=== PATIENT | female | born 2005 | race Caucasian/White ===

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

== ENCOUNTER 2025-02-07 09:18 | Outpatient (CLI) | payer BC, SELFPAY | END 2025-02-07 09:19 | disposition home or self-care (01) | LOC: NFLDREF 02-13 20:13 | PROVIDERS: PCP Nurse Practitioner Family; Referring Provider Nurse Practitioner Family; Visit Provider Nurse Practitioner Family | DX: R79.0 Abnormal level of blood mineral (principal) | CPT/HCPCS: 82728; 83540; 83550; 85025 ==